=== PATIENT | male | born 1950 | race African-American/Black ===

== ENCOUNTER 2019-01-29 08:05 | Emergency (ER) | payer MEDICARE, MEDICAID ==
[~2019-01-29] VITALS: Ht 182.9 cm; Wt 82.0 kg
[2019-01-29] MEDS ORDERED: ASPIRIN 81MG TABLET PO ONE ×2 (09:30→09:45)
[2019-01-29 09:39] LABS: BASOPHILS % 1.1 % (0.0-2.0); EOSINOPHILS % 3.9 % (0.0-5.0); HEMATOCRIT. 36.5 % (42.0-52.0); HEMOGLOBIN. 12.2 g/dL (14.0-18.0); LYMPHOCYTES % 41.9 % (20.0-50.0); MEAN CORPUSCULAR HEMOGLOBIN 32.5 pg (28.0-32.0); MEAN CORPUSCULAR VOLUME 97.4 fL (80.0-94.0); MEAN PLATELET VOLUME 9.4 fl (7.4-10.4); MONOCYTES % 8.9 % (2.0-8.0); NEUTROPHILS % 44.2 % (40.0-76.0); PLATELET 155 x1000/uL (130-400); RED BLOOD CELL COUNT 3.74 mill/uL (4.7-6.1); RED CELL DISTRIBUTION WIDTH 14.4 % (11.6-14.6)
[2019-01-29 09:43] LABS: CHLORIDE 118 mEq/L (98-107)
[2019-01-29 09:46] LABS: ETHANOL BLOOD < 10 mg/dL
[2019-01-29 10:25] VITALS: BP 145/75
== END 2019-01-29 10:32 | disposition home or self-care (01) ==
LOC: ER 08:05
DX: R07.89 Other chest pain (principal); J44.9 Chronic obstructive pulmonary disease, unspecified; E11.9 Type 2 diabetes mellitus without complications; Z76.5 Malingerer [conscious simulation]; I10 Essential (primary) hypertension
CPT/HCPCS: 36415; 71045; 80048; 80320; 83880; 84484; 85025; 93005; 99284; Z7610; G0480